=== PATIENT | female | born 1960 | race Caucasian/White ===

== ENCOUNTER 2020-08-16 11:46 | Emergency (ER) | payer BC, OTHER ==
[2020-08-16] MEDS ORDERED: Sodium Chloride 0.9% 1,000 ML IV ONE (12:28)
--- NOTE | 2020-08-16 12:28 | EDM.PDOC ---
ED HPI GENERAL MEDICAL PROBLEM - General Chief Complaint: General Stated Complaint: HIGHBLOOD PRESSURE,TEMP Time Seen by Provider: 08/16/20 12:00 Source of Information: Reports: Patient History Limitations: Reports: No Limitations - History of Present Illness INITIAL COMMENTS - FREE TEXT/NARRATIVE: took Avastin since 3 weeks ( maintenance therapy for Ovarian cancer) noted to have elevated bP and started on lisinopril yesterday today has MONTENEGRO , occipital , not affecting her vision BP 160-95 , 181 /91 on arrival in ER has not been sleeping well due to headache not worse MONTENEGRO in her life, but states she usually does not get headaches no HTN before taking the med ( normal BP 118-120 Onset: Today headache Pain Score (Numeric/FACES): 8 - Related Data Allergies Allergy/AdvReac Type Severity Reaction Status Date / Time adhesive Allergy Rash Verified 08/16/20 12:07 Home Meds: Home Meds lisinopriL [Lisinopril] 5 mg PO DAILY 08/16/20 [History] lisinopriL [Lisinopril] 10 mg PO DAILY #30 tablet 08/16/20 [Rx] ED ROS GENERAL - Review of Systems Review Of Systems: See Below Constitutional: Reports: No Symptoms, Weakness, Fatigue, Diaphoresis, Decreased Appetite. Denies: Fever, Chills, Malaise HEENT: Reports: No Symptoms, Vertigo Respiratory: Denies: Shortness of Breath, Pleuritic Chest Pain Cardiovascular: Denies: Chest Pain, Blood Pressure Problem, Dyspnea on Exertion, Edema, Lightheadedness, Palpitations Endocrine: Denies: Fatigue GI/Abdominal: Reports: No Symptoms Musculoskeletal: Reports: No Symptoms Neurological: Reports: Headache (occipital, no neck pain ). Denies: Dizziness, Numbness, Tingling, Trouble Speaking, Difficulty Walking, Change in Speech Psychiatric: Reports: Anxiety Hematologic/Lymphatic: Reports: No Symptoms Immunologic: Reports: No Symptoms ED EXAM, GENERAL - Physical Exam Exam: See Below Exam Limited By: No Limitations General Appearance: Alert, WD/WN, No Apparent Distress Eye Exam: Bilateral Eye: Conjunctival Injection, EOMI Ears: Normal External Exam Ear Exam: Bilateral Ear: TM Dull Nose: Normal Inspection Throat/Mouth: Normal Oropharynx Head: Atraumatic, Normocephalic. No: Facial Swelling, Facial Tenderness, Sinus Tenderness Neck: Supple, Non-Tender Respiratory/Chest: Lungs Clear, Normal Breath Sounds Cardiovascular: Regular Rate, Rhythm Back Exam: Full Range of Motion Extremities: Normal Inspection, Normal Range of Motion Neurological: Alert, Oriented, CN II-XII Intact Psychiatric: Normal Affect Skin Exam: Warm Course - Vital Signs Last Recorded V/S: Last Vital Signs Temp 37.2 C 08/16/20 16:30 Pulse 80 08/16/20 16:30 Resp 18 08/16/20 16:30 BP 146/87 H 08/16/20 16:30 Pulse Ox 99 08/16/20 16:30 - Orders/Labs/Meds Orders: Active Orders 24 hr Category Date Time Status Head wo Cont [CT] Stat Exams 08/16/20 12:43 Ordered UA W/MICROSCOPIC [URIN] Stat Lab 08/16/20 12:39 Ordered Labs: Laboratory Tests 08/16/20 08/16/20 08/16/20 Range/Units 13:00 13:00 13:00 WBC 5.1 (4.5-12.0) X10-3/uL RBC 3.88 (3.23-5.20) x10(6)uL Hgb 12.2 (11.5-15.5) g/dL Hct 37.9 (30.0-51.3) % MCV 97.5 H (80-96) fL MCH 31.4 (27.7-33.6) pg MCHC 32.2 (32.2-35.4) g/dL RDW 13.5 (11.5-15.5) % Plt Count 164 (125-369) X10(3)uL MPV 7.0 L (7.4-10.4) fL Neut % (Auto) 75.7 (46-82) % Lymph % (Auto) 16.4 (13-37) % Mckinley % (Auto) 5.7 (4-12) % Eos % (Auto) 2 (1.0-5.0) % Baso % (Auto) 1 (0-2) % Neut # (Auto) 3.9 (1.6-8.3) # Lymph # (Auto) 0.8 (0.6-5.0) # Mckinley # (Auto) 0.3 (0.0-1.3) # Eos # (Auto) 0.1 (0.0-0.8) # Baso # (Auto) 0.0 (0.0-0.2) # Sodium 135 (135-145) mmol/L Potassium 4.3 (3.5-5.3) mmol/L Chloride 100 (100-110) mmol/L Carbon Dioxide 29 (21-32) mmol/L BUN 21 H (7-18) mg/dL Creatinine 1.1 H (0.55-1.02) mg/dL Est Cr Clr Drug Dosing TNP Estimated GFR (MDRD) 51 L (>60) BUN/Creatinine Ratio 19.1 (9-20) Glucose 90 (80-116) mg/dL Calcium 8.3 L (8.6-10.2) mg/dL C-Reactive Protein < 0.2 L (0.5-0.9) mg/dL Meds: Medications Discontinued Medications Generic Name Dose Route Start Last Admin Trade Name Freq PRN Reason Stop Dose Admin Heparin Sodium (Porcine) 500 units 08/16/20 16:15 08/16/20 16:21 Heparin Lock Flush 100 Units/Ml FLUSH 08/16/20 16:16 500 units ONETIME ONE Administration Hydralazine HCl 20 mg 08/16/20 14:34 08/16/20 14:41 Apresoline IVPUSH 08/16/20 14:35 20 mg ONETIME ONE Administration Hydroxyzine HCl 50 mg 08/16/20 12:30 08/16/20 12:44 Vistaril IM 08/16/20 12:31 50 mg ONETIME ONE Administration Sodium Chloride 1,000 mls @ 999 mls/hr 08/16/20 12:28 08/16/20 12:43 Normal Saline IV 08/16/20 13:28 999 mls/hr .BOLUS ONE Administration Lisinopril 5 mg 08/16/20 12:32 08/16/20 12:44 Prinivil PO 08/16/20 12:33 5 mg ONETIME ONE Administration Methylprednisolone Sodium Succinate 125 mg 08/16/20 15:20 08/16/20 15:32 Solu-Medrol IV 08/16/20 15:21 125 mg ONETIME ONE Administration Methylprednisolone Sodium Succinate Confirm 08/16/20 15:17 08/16/20 15:34 Solu-Medrol Administered 08/16/20 15:18 Not Given Dose 125 mg .ROUTE .STK-MED ONE Ondansetron HCl 8 mg 08/16/20 12:31 08/16/20 13:18 Zofran IVPUSH 08/16/20 12:32 Not Given ONETIME ONE Sodium Chloride 10 ml 08/16/20 12:00 08/16/20 16:20 Saline Flush FLUSH 10 ml ASDIRECTED PRN Administration Keep Vein Open - Re-Assessments/Exams Free Text/Narrative Re-Assessment/Exam: 08/16/20 14:41 given IVF vistaril zofran ( declined ) and lisinorpil MONTENEGRO minimally improved and BP did not improve will add hydralazine CT head : negative 08/16/20 14:42 Free Text/Narrative Re-Assessment/Exam: 08/16/20 15:13 pt complaining of redness in the face neck, stuffiness in the nose since she was given hydralazine , now has chills , feeling cold ? Possible adverse reaction to hydralazine Will give patient Solumedrol 08/16/20 15:19 states she had a similar reaction after she was given same medication last time her BP was elevated, but she felt only flush on her face 08/16/20 18:47 Departure - Departure Time of Disposition: 16:35 Disposition: Home, Self-Care 01 Condition: Fair Clinical Impression: Hypertension, Headache disorder - Discharge Information *PRESCRIPTION DRUG MONITORING PROGRAM REVIEWED*: Not Applicable *COPY OF PRESCRIPTION DRUG MONITORING REPORT IN PATIENT KACIE: Not Applicable Prescriptions: lisinopriL [Lisinopril] 10 mg PO DAILY #30 tablet Instructions: Tension Headache, Adult, [id number], Hypertension, Adult, [id number], Managing Your Hypertension Referrals: PCP,None [Ordering Only Provider] - Forms: ED Department Discharge Additional Instructions: 1) increase dose of Lisinopril to 10 mg daily from tomorrow in the morning 2) Continue with all medications as prescribed 3) Follow up with your PCP in 3-5 days 4) You had a flushed reaction to the medication Hydralazine for hypertension Sepsis Event Note (ED) - Evaluation Sepsis Screening Result: No Definite Risk - Focused Exam Vital Signs: Vital Signs Temp Pulse Resp BP BP Pulse Ox 08/16/20 16:30 37.2 C 80 18 146/87 H 99 08/16/20 12:44 156/95 H 10/03/20 12:00 36.7 C 66 16 162/95 H 100 - My Orders Last 24 Hours: My Active Orders 08/16/20 12:39 UA W/MICROSCOPIC [URIN] Stat 08/16/20 12:43 Head wo Cont [CT] Stat - Assessment/Plan Last 24 Hours: My Active Orders 08/16/20 12:39 UA W/MICROSCOPIC [URIN] Stat 08/16/20 12:43 Head wo Cont [CT] Stat
[2020-08-16] MEDS ORDERED: hydrOXYzine HCl 50 MG/ML SDV IM ONE (12:30)
[2020-08-16] MEDS ORDERED: Lisinopril 5 MG Tab PO ONE (12:32)
[2020-08-16] MEDS: Ondansetron 4 MG/2 ML SDV IVPUSH ONE ×2 (12:44→13:18)
[2020-08-16] MEDS ORDERED: hydrALAZINE 20 MG/ML SDV IVPUSH ONE (14:34)
[2020-08-16] MEDS: Sodium Chloride 0.9% 10 ML Syringe FLUSH PRN ×2 (15:15→16:20)
[2020-08-16] MEDS ORDERED: methylPREDNISolone Sodium Succinate 125 MG/2 ML SDV IV ONE (15:20)
[2020-08-16] MEDS: methylPREDNISolone Sodium Succinate 125 MG/2 ML SDV ONE ×2 (15:20→15:34)
== END 2020-08-16 16:35 | disposition home or self-care (01) ==
LOC: FB.ED 11:46
DX: I10 Essential (primary) hypertension (principal); Z91.048 Other nonmedicinal substance allergy status; Z79.899 Other long term (current) drug therapy
CPT/HCPCS: 70450; 80048; 85025; 86140; 96361; 96372; 96374; 96375; 99284; A9270; J0360; J1642; J2930; J3410; J7030; J2405